=== PATIENT | male | born 1940 | race Hispanic/Latino ===

== ENCOUNTER → 2018-05-12 | Outpatient (CLI) | payer OTHER, MEDICARE ==
[~2018-05-12] MED LIST: ASPI-555 PO; GLIP1TAB5 PO; HONEY 1 APPL/ML TUBE TP ONE; LISI-613 PO; SIMV40TA59 PO; VIT500LI PO; [UNRECOGNIZED DRUG - OTHER] PO
[2018-05-12 13:05] VITALS: BP 144/68
== END | disposition home or self-care (01) ==
LOC: WHH 08:25
PROVIDERS: ATTEND Podiatrist Foot & Ankle Surgery
DX: E11.621 Type 2 diabetes mellitus with foot ulcer (principal); L97.421 Non-pressure chronic ulcer of left heel and midfoot limited to breakdown of skin; I10 Essential (primary) hypertension; E78.00 Pure hypercholesterolemia, unspecified; F03.90 Unspecified dementia, unspecified severity, without behavioral disturbance, psychotic disturbance, mood disturbance, and anxiety
CPT/HCPCS: 11042; A4450; A6209; G0463

== ENCOUNTER → 2018-05-26 | Outpatient (CLI) | payer OTHER, MEDICARE ==
[~2018-05-26] MED LIST changes: -HONEY 1 APPL/ML TUBE TP ONE
[2018-05-26 11:48] VITALS: BP 150/68
== END | disposition home or self-care (01) ==
LOC: WHH 09:30
PROVIDERS: ATTEND Podiatrist Foot & Ankle Surgery
DX: E11.621 Type 2 diabetes mellitus with foot ulcer (principal); L97.421 Non-pressure chronic ulcer of left heel and midfoot limited to breakdown of skin; I10 Essential (primary) hypertension; E78.00 Pure hypercholesterolemia, unspecified; F03.90 Unspecified dementia, unspecified severity, without behavioral disturbance, psychotic disturbance, mood disturbance, and anxiety
CPT/HCPCS: 11042; A4649

== ENCOUNTER → 2018-06-02 | Outpatient (CLI) | payer OTHER, MEDICARE ==
[2018-06-02 13:58] VITALS: BP 131/60
== END | disposition home or self-care (01) ==
LOC: WHH 09:00
PROVIDERS: ATTEND Podiatrist Foot & Ankle Surgery
DX: E11.621 Type 2 diabetes mellitus with foot ulcer (principal); L97.421 Non-pressure chronic ulcer of left heel and midfoot limited to breakdown of skin; I10 Essential (primary) hypertension; E78.00 Pure hypercholesterolemia, unspecified; F03.90 Unspecified dementia, unspecified severity, without behavioral disturbance, psychotic disturbance, mood disturbance, and anxiety
CPT/HCPCS: 11042; A4649

== ENCOUNTER → 2018-06-16 | Outpatient (CLI) | payer OTHER, MEDICARE ==
[2018-06-16 11:58] VITALS: BP 135/59
== END | disposition home or self-care (01) ==
LOC: WHH 09:15
PROVIDERS: ATTEND Podiatrist Foot & Ankle Surgery
DX: E11.621 Type 2 diabetes mellitus with foot ulcer (principal); L97.421 Non-pressure chronic ulcer of left heel and midfoot limited to breakdown of skin; I10 Essential (primary) hypertension; E78.00 Pure hypercholesterolemia, unspecified; F03.90 Unspecified dementia, unspecified severity, without behavioral disturbance, psychotic disturbance, mood disturbance, and anxiety
CPT/HCPCS: A4649; G0463

== ENCOUNTER → 2018-06-30 | Outpatient (CLI) | payer OTHER, MEDICARE ==
[2018-06-30 13:15] VITALS: BP 179/86
== END | disposition home or self-care (01) ==
LOC: WHH 09:25
PROVIDERS: ATTEND Podiatrist Foot & Ankle Surgery
DX: E11.621 Type 2 diabetes mellitus with foot ulcer (principal); L97.421 Non-pressure chronic ulcer of left heel and midfoot limited to breakdown of skin; I10 Essential (primary) hypertension; E78.00 Pure hypercholesterolemia, unspecified; F03.90 Unspecified dementia, unspecified severity, without behavioral disturbance, psychotic disturbance, mood disturbance, and anxiety; Z89.422 Acquired absence of other left toe(s)
CPT/HCPCS: A4649; G0463

== ENCOUNTER → 2018-07-21 | Outpatient (CLI) | payer OTHER, MEDICARE ==
[2018-07-21 13:15] VITALS: BP 113/58
== END | disposition home or self-care (01) ==
LOC: WHH 09:15
PROVIDERS: ATTEND Podiatrist Foot & Ankle Surgery
DX: E11.621 Type 2 diabetes mellitus with foot ulcer (principal); L97.421 Non-pressure chronic ulcer of left heel and midfoot limited to breakdown of skin; I10 Essential (primary) hypertension; E78.00 Pure hypercholesterolemia, unspecified; F03.90 Unspecified dementia, unspecified severity, without behavioral disturbance, psychotic disturbance, mood disturbance, and anxiety; Z89.422 Acquired absence of other left toe(s)
CPT/HCPCS: G0463

== ENCOUNTER 2018-07-28 09:00 | Outpatient (CLI) | payer OTHER, MEDICARE ==
[2018-07-28 13:51] VITALS: BP 148/70
== END 2018-07-28 15:05 | disposition home or self-care (01) ==
LOC: WHH 09:00
PROVIDERS: ATTEND Podiatrist Foot & Ankle Surgery
DX: E11.621 Type 2 diabetes mellitus with foot ulcer (principal); L97.428 Non-pressure chronic ulcer of left heel and midfoot with other specified severity; I10 Essential (primary) hypertension; E78.00 Pure hypercholesterolemia, unspecified; F03.90 Unspecified dementia, unspecified severity, without behavioral disturbance, psychotic disturbance, mood disturbance, and anxiety; Z89.422 Acquired absence of other left toe(s)
CPT/HCPCS: G0463

== ENCOUNTER 2018-10-15 20:48 | Inpatient (IN) | payer OTHER, MEDICARE ==
[~2018-10-15] VITALS: Ht 177.8 cm; Wt 90.2 kg
[2018-10-15 21:46] LABS: CREATINE KINASE, TOTAL 77 U/L (21-232); MYOGLOBIN 127 ng/mL (10-92); TROPONIN I < 0.04 ng/mL (0.00-0.06)
[2018-10-15 21:47] LABS: BASOPHILS % (AUTO) 0.4 % (0.0-5.0); HEMATOCRIT 31.4 % (42-54); LYMPHOCYTES % (AUTO) 4.6 % (21.0-51.0); MEAN CORPUSCULAR HEMOGLOBIN 29.5 pg (27.0-33.0); MEAN CORPUSCULAR HGB CONC 32.1 g/dL (32.0-36.0); MEAN CORPUSCULAR VOLUME 91.9 fL (79-99); MONOCYTES % (AUTO) 6.3 % (3.0-13.0); NEUTROPHILS % (AUTO) 88.7 % (40.0-77.0); PLATELET COUNT (AUTO) 284 K/uL (130-400); RED BLOOD CELL COUNT(AUTO) 3.42 MIL/uL (4.50-6.20); WHITE BLOOD COUNT (AUTO) 15.2 K/uL (4.8-10.8)
[2018-10-15 21:56] LABS: APPEARANCE,URINE Clear (CLEAR); BILIRUBIN,URINE Negative (NEGATIVE); COLOR,URINE Yellow (YELLOW); GLUCOSE, URINE (UA) Negative (NEGATIVE); KETONES,URINE Negative (NEGATIVE); LEUKOCYTE ESTERASE ,URINE Trace (NEGATIVE); NITRATE,URINE Negative (NEGATIVE); OCCULT BLOOD,URINE Negative (NEGATIVE); PROTEIN,URINE Negative (NEGATIVE); UROBILINOGEN,URINE 0.2 mg/dL (0.2-1.0)
[2018-10-15 22:01] LABS: ALBUMIN 2.2 g/dL (3.5-5.0); BILIRUBIN,TOTAL 0.4 mg/dL (0.2-1.0); POTASSIUM 5.9 mmol/L (3.5-5.1); TOTAL PROTEIN, SERUM 6.2 g/dL (6.0-8.3)
[2018-10-15 22:07] LABS: BACTERIA,URINE Few /HPF (None Seen); RBC,URINE 0-1 /HPF (0-1); SQUAMOUS EPITHELIAL CELL,UR 0-2 /HPF (0-2); WBC,URINE 0-1 /HPF (0-1)
[2018-10-15] MEDS ORDERED: ACETAMINOPHEN EXTRA STRENGTH 500 MG TABLET ONE (22:13)
[2018-10-15] MEDS ORDERED: SODIUM CHLORIDE 0.9% 1000ML 1,000 ML IV ONE ×2 (22:13→23:59)
[2018-10-15 22:27] LABS: INR 0.98 (0.85-1.15); PARTIAL THROMBOPLASTIN TIME 35.9 SEC (26.3-35.5); PROTHROMBIN TIME 10.3 SEC (9.6-11.6)
[2018-10-15] MEDS ORDERED: MAGNESIUM 2GM PREMIX 50ML 50 ML IV ONE (22:54)
[2018-10-15] MEDS ORDERED: CEFTRIAXONE SODIUM 1 GM ONE (22:55)
[2018-10-15] MEDS ORDERED: AZITHROMYCIN 500MG+NS 250ML 250 ML IV ONE (22:55)
[2018-10-15] MEDS ORDERED: METHYLPREDNISOLONE SOD SUCC 40MG/ML 1ML ONE (23:59)
[2018-10-16] MEDS: SODIUM CHLORIDE 0.9% 1000ML 1,000 ML IV SCH ×3 (02:00→20:45)
[2018-10-16] MEDS ORDERED: DEXTROSE 50%-WATER 50 ML DISP.SYRIN IV PRN (02:00)
[2018-10-16] MEDS ORDERED: ONDANSETRON HCL 4 MG/2 ML VIAL IVP PRN (02:00)
[2018-10-16] MEDS ORDERED: GLUCAGON 1MG KIT 1 MG ML IM PRN (02:00)
[2018-10-16] MEDS ORDERED: NOREPINEPHRINE BITARTRATE 1 MG/1 ML ML IV ONE (02:31)
[2018-10-16] MEDS: IPRATROPIUM/ALBUTEROL SULFATE 3 ML SOLUTION IH SCH ×4 (06:23→23:55)
[2018-10-16] MEDS ORDERED: NOREPINEPHRINE 4MG/NS 250ML 250 ML IV PRN (06:45)
[2018-10-16 06:51] LABS: BASOPHILS % (AUTO) 0.1 % (0.0-5.0); EOSINOPHILS % (AUTO) 0.1 % (0.0-8.0); HEMATOCRIT 31.4 % (42-54); LYMPHOCYTES % (AUTO) 3.9 % (21.0-51.0); MEAN CORPUSCULAR HEMOGLOBIN 29.9 pg (27.0-33.0); MEAN CORPUSCULAR HGB CONC 32.7 g/dL (32.0-36.0); MEAN CORPUSCULAR VOLUME 91.6 fL (79-99); MONOCYTES % (AUTO) 1.6 % (3.0-13.0); NEUTROPHILS % (AUTO) 94.3 % (40.0-77.0); PLATELET COUNT (AUTO) 262 K/uL (130-400); RED BLOOD CELL COUNT(AUTO) 3.43 MIL/uL (4.50-6.20); RED CELL DISTRIBUTION WIDTH 14.9 % (11.0-15.5); WHITE BLOOD COUNT (AUTO) 16.8 K/uL (4.8-10.8)
[2018-10-16 07:05] LABS: CREATININE 2.2 mg/dL (0.5-1.5); POTASSIUM 5.8 mmol/L (3.5-5.1)
[2018-10-16] MEDS: INSULIN R PO SS1 SQ SCH ×4 (07:30→22:36)
[2018-10-16] MEDS ORDERED: INSULIN HUMULIN R 100 UNIT/ML 3ML ONE ×3 (07:34→13:41)
[2018-10-16] MEDS: ENOXAPARIN SODIUM 30 MG/0.3 ML SQ SCH (09:00)
[2018-10-16] MEDS ORDERED: PANTOPRAZOLE 40 MG/VIAL IVP SCH (09:00)
[2018-10-16] MEDS ORDERED: ENOXAPARIN SODIUM 30 MG/0.3 ML SQ ONE (09:23)
[2018-10-16 10:08] LABS: TROPONIN I 0.25 ng/mL (0.00-0.06)
[2018-10-16] MEDS ORDERED: SODIUM CHLORIDE 0.9% 1000ML 1,000 ML IV ONE (10:46)
[2018-10-16] MEDS: METHYLPREDNISOLONE SOD SUCC 40MG/ML 1ML IVP SCH (12:00)
[2018-10-16] MEDS ORDERED: ONDA8TAB12 PO (13:03)
[2018-10-16] MEDS ORDERED: PANT40TA25 PO (13:03)
[2018-10-16 13:36] VITALS: BP 122/63
[2018-10-16] MEDS ORDERED: CALCIUM GLUCONATE 1 GM/10 ML VIAL IV ONE (13:40)
[2018-10-16] MEDS ORDERED: SODIUM BICARB 50MEQ 50ML VIAL ONE (13:40)
[2018-10-16] MEDS ORDERED: DEXTROSE 50%-WATER 50 ML DISP.SYRIN IV ONE (13:42)
[2018-10-16 14:15] VITALS: BP 137/75
[2018-10-16 16:00] VITALS: BP 111/60
[2018-10-16 19:25] VITALS: BP 129/73
[2018-10-16] MEDS: AZITHROMYCIN 500MG+NS 250ML 250 ML IV SCH (20:44)
[2018-10-16] MEDS: CEFTRIAXONE SODIUM 1 GM IVP SCH (22:15)
[2018-10-16 23:31] VITALS: BP 113/54
[2018-10-17] MEDS: METHYLPREDNISOLONE SOD SUCC 40MG/ML 1ML IVP SCH ×3 (00:33→23:36)
[2018-10-17 03:16] VITALS: BP 115/65
[2018-10-17 03:31] LABS: BASOPHILS % (AUTO) 0.1 % (0.0-5.0); HEMATOCRIT 27.3 % (42-54); LYMPHOCYTES % (AUTO) 1.9 % (21.0-51.0); MEAN CORPUSCULAR HEMOGLOBIN 29.6 pg (27.0-33.0); MEAN CORPUSCULAR HGB CONC 32.4 g/dL (32.0-36.0); MEAN CORPUSCULAR VOLUME 91.6 fL (79-99); PLATELET COUNT (AUTO) 263 K/uL (130-400); RED BLOOD CELL COUNT(AUTO) 2.98 MIL/uL (4.50-6.20); RED CELL DISTRIBUTION WIDTH 14.8 % (11.0-15.5); WHITE BLOOD COUNT (AUTO) 16.8 K/uL (4.8-10.8)
[2018-10-17 04:52] LABS: ALBUMIN 1.7 g/dL (3.5-5.0); BILIRUBIN,TOTAL 0.2 mg/dL (0.2-1.0); CREATININE 1.7 mg/dL (0.5-1.5); MAGNESIUM 1.7 mg/dL (1.80-2.40); POTASSIUM 4.7 mmol/L (3.5-5.1); THYROID STIMULATING HORMONE 0.22 uIU/mL (0.36-3.74); TOTAL PROTEIN, SERUM 5.2 g/dL (6.0-8.3); URIC ACID 9.1 mg/dL (2.6-7.2)
[2018-10-17] MEDS: INSULIN R PO SS1 SQ SCH ×4 (06:56→21:55)
[2018-10-17 07:00] VITALS: BP 132/70
[2018-10-17] MEDS: IPRATROPIUM/ALBUTEROL SULFATE 3 ML SOLUTION IH SCH ×4 (07:20→23:35)
[2018-10-17] MEDS: PANTOPRAZOLE SODIUM 40 MG TABLET.DR PO SCH (09:23)
[2018-10-17] MEDS: FOLIC ACID/VITAMIN B COMP W-C 1 MG CAPSULE PO SCH (09:23)
[2018-10-17] MEDS: ENOXAPARIN SODIUM 30 MG/0.3 ML SQ SCH (09:24)
[2018-10-17] MEDS: SODIUM CHLORIDE 0.9% 1000ML 1,000 ML IV SCH (09:24)
[2018-10-17 11:00] VITALS: BP 128/62
[2018-10-17 16:00] VITALS: BP 145/76
--- NOTE | 2018-10-17 17:12 | NUR ---
cm note met with patient and [facility] with 2 daughters doroteo and lauren flores, pt independent with ambulation and adls. no dme. no services at home. [facility] dc plan is back to same home setting at [place]. no dc needs. pt drives. Addendum: 10/17/18 at 1714 by SACHA GONZALEZ CM Amended: Links added.
[2018-10-17 19:10] VITALS: BP 127/60
[2018-10-17] MEDS: AZITHROMYCIN 500MG+NS 250ML 250 ML IV SCH (20:26)
[2018-10-17] MEDS: CEFTRIAXONE SODIUM 1 GM IVP SCH (21:41)
[2018-10-17] MEDS: ACETAMINOPHEN 325 MG TAB PO PRN (21:41)
[2018-10-17 23:00] VITALS: BP 139/69
--- NOTE | 2018-10-18 01:57 | NUR ---
Patient is alert and oriented. Lying in bed, comfortably. Patient receiving IVF. IV to L arm CDI, patent. Currently using 2L of 02 via NC. NO c/o of sob or chest pain. Patient ambulates to bathroom with FWW and standby assist from daughter. Patient states he has intermittent scrotal pain. Visible swelling to scrotum. Trace of swelling to BLE. IVF decreased per MD order. Pending sputum cx. Patient unable to give sample at this time. Will try again later.
[2018-10-18 03:17] VITALS: BP 118/61
[2018-10-18 03:47] LABS: HEMATOCRIT 26.9 % (42-54); MEAN CORPUSCULAR HEMOGLOBIN 29.9 pg (27.0-33.0); MEAN CORPUSCULAR HGB CONC 32.9 g/dL (32.0-36.0); MEAN CORPUSCULAR VOLUME 90.9 fL (79-99); NUCLEATED RED BLOOD CELLS 0.1 % (0.0-0.19); PLATELET COUNT (AUTO) 247 K/uL (130-400); RED BLOOD CELL COUNT(AUTO) 2.96 MIL/uL (4.50-6.20); RED CELL DISTRIBUTION WIDTH 15.3 % (11.0-15.5); WHITE BLOOD COUNT (AUTO) 14.8 K/uL (4.8-10.8)
[2018-10-18 04:02] LABS: CREATININE 1.4 mg/dL (0.5-1.5); POTASSIUM 4.8 mmol/L (3.5-5.1)
[2018-10-18] MEDS: INSULIN R PO SS1 SQ SCH ×4 (05:34→21:00)
[2018-10-18] MEDS: SODIUM CHLORIDE 0.9% 1000ML 1,000 ML IV SCH (05:52)
[2018-10-18] MEDS: IPRATROPIUM/ALBUTEROL SULFATE 3 ML SOLUTION IH SCH ×4 (06:10→23:23)
[2018-10-18 07:46] VITALS: BP 125/75
[2018-10-18] MEDS: PREDNISONE 20 MG TABLET PO SCH (08:55)
[2018-10-18] MEDS: PANTOPRAZOLE SODIUM 40 MG TABLET.DR PO SCH (08:55)
[2018-10-18] MEDS: FOLIC ACID/VITAMIN B COMP W-C 1 MG CAPSULE PO SCH (08:55)
[2018-10-18] MEDS: ENOXAPARIN SODIUM 30 MG/0.3 ML SQ SCH (08:56)
[2018-10-18 11:58] VITALS: BP 135/70
[2018-10-18] MEDS: ACETAMINOPHEN 325 MG TAB PO PRN (12:16)
[2018-10-18] MEDS: ASPIRIN 81 MG EC TAB PO SCH (13:31)
[2018-10-18] MEDS: METOPROLOL TARTRATE 25 MG TAB PO SCH ×2 (13:31→22:17)
[2018-10-18] MEDS ORDERED: FUROSEMIDE 10 MG/ML 2ML VIAL ONE (16:08)
[2018-10-18 16:55] VITALS: BP 129/68
[2018-10-18] MEDS: FUROSEMIDE 10 MG/ML 2ML VIAL IV SCH (17:00)
[2018-10-18 19:00] VITALS: BP 131/67
[2018-10-18] MEDS: LACTULOSE 20 GM/30 ML UDCUP PO PRN (19:39)
[2018-10-18] MEDS: AZITHROMYCIN 500MG+NS 250ML 250 ML IV SCH (22:16)
[2018-10-18] MEDS: CEFTRIAXONE SODIUM 1 GM IVP SCH (22:17)
[2018-10-18 23:00] VITALS: BP 121/68
[2018-10-19 03:00] VITALS: BP 117/65
[2018-10-19 04:44] LABS: HEMATOCRIT 31.4 % (42-54); MEAN CORPUSCULAR HGB CONC 32.9 g/dL (32.0-36.0); MEAN CORPUSCULAR VOLUME 91.3 fL (79-99); PLATELET COUNT (AUTO) 306 K/uL (130-400); RED BLOOD CELL COUNT(AUTO) 3.44 MIL/uL (4.50-6.20)
[2018-10-19 04:56] LABS: CREATININE 1.6 mg/dL (0.5-1.5); MAGNESIUM 1.5 mg/dL (1.80-2.40); POTASSIUM 4.8 mmol/L (3.5-5.1)
[2018-10-19] MEDS: IPRATROPIUM/ALBUTEROL SULFATE 3 ML SOLUTION IH SCH ×3 (06:11→18:11)
[2018-10-19] MEDS ORDERED: MAGNESIUM 2GM PREMIX 50ML 50 ML IV PRN (06:30)
[2018-10-19] MEDS: PANTOPRAZOLE SODIUM 40 MG TABLET.DR PO SCH (06:32)
[2018-10-19] MEDS: FUROSEMIDE 10 MG/ML 2ML VIAL IV SCH ×2 (06:32→17:32)
[2018-10-19] MEDS: INSULIN R PO SS1 SQ SCH ×3 (06:33→16:30)
[2018-10-19 07:52] VITALS: BP 110/60
[2018-10-19] MEDS: METOPROLOL TARTRATE 25 MG TAB PO SCH (09:18)
[2018-10-19] MEDS: ASPIRIN 81 MG EC TAB PO SCH (09:18)
[2018-10-19] MEDS: LACTULOSE 20 GM/30 ML UDCUP PO PRN (09:18)
[2018-10-19] MEDS: FOLIC ACID/VITAMIN B COMP W-C 1 MG CAPSULE PO SCH (09:18)
[2018-10-19] MEDS: PREDNISONE 20 MG TABLET PO SCH (09:18)
[2018-10-19] MEDS: ENOXAPARIN SODIUM 30 MG/0.3 ML SQ SCH (09:24)
--- NOTE | 2018-10-19 11:40 | NUR ---
ASSISTED TO RESTROOM WITH USE OF WALKER REQUESTED BY PT. INSTRUCTED ON EMERGENCY CALL LIGHT USE, VERBALIZED UNDERSTANDING. SPOUSE AT BEDSIDE.
[2018-10-19 11:54] VITALS: BP 98/50
--- NOTE | 2018-10-19 12:18 | NUR ---
DR. DE LA ROSA IN ROOM SPEAKING WITH PT. AND FEMALE VISITOR AT BEDSIDE.
[2018-10-19 16:32] VITALS: BP 112/60
--- NOTE | 2018-10-19 17:32 | NUR ---
PT. STATES JUST HAD LARGE BM IN RESTROOM BUT REQUESTING DULCOLAX SUPPOSITORY ORDERED BY MD TO BE ADMINISTERED. SUPPOSITORY ADMINISTERED REQUESTED BY PT.; PT.'S DAUGHTER PRESENT AT BEDSIDE WHEN SUPPOSITORY REQUESTED.
[2018-10-19] MEDS: ACETAMINOPHEN 325 MG TAB PO PRN (17:41)
[2018-10-19] MEDS ORDERED: BISACODYL 10 MG SUPP.RECT RC ONE (17:58)
--- NOTE | 2018-10-19 18:20 | NUR ---
HL REMOVED, CATHETER INTACT. DISCHARGE INSTRUCTIONS GIVEN TO PT. AND DAUGHTER AT BEDSIDE, VERBALIZED MUTUAL UNDERSTANDING AND QUESTIONS ANSWERED.
--- NOTE | 2018-10-19 18:32 | NUR ---
DISCHARGED HOME VIA W/C WITH BELONGINGS ACCOMPANIED BY Jose COE, PCP AND PT.'S DAUGHTER.
== END 2018-10-19 19:09 | disposition home or self-care (01) | DRG 871 ==
LOC: EDH 20:48 → EDHIP 23:23 → 2AH 10-16 03:15
PROVIDERS: ADMIT Internal Medicine; ATTEND Internal Medicine
DX: A41.9 Sepsis, unspecified organism (principal); J18.9 Pneumonia, unspecified organism; J96.01 Acute respiratory failure with hypoxia; R65.21 Severe sepsis with septic shock; N17.9 Acute kidney failure, unspecified; E87.1 Hypo-osmolality and hyponatremia; E11.21 Type 2 diabetes mellitus with diabetic nephropathy; D64.9 Anemia, unspecified; E11.22 Type 2 diabetes mellitus with diabetic chronic kidney disease; E78.5 Hyperlipidemia, unspecified; E83.42 Hypomagnesemia; E87.5 Hyperkalemia; I12.9 Hypertensive chronic kidney disease with stage 1 through stage 4 chronic kidney disease, or unspecified chronic kidney disease; I48.91 Unspecified atrial fibrillation; K59.00 Constipation, unspecified; N18.9 Chronic kidney disease, unspecified; Z96.649 Presence of unspecified artificial hip joint; Z89.422 Acquired absence of other left toe(s)
CPT/HCPCS: 36415; 70450; 71045; 71250; 76770; 80048; 80053; 81001; 82550; 82948; 83605; 83735; 83874; 83880; 84100; 84443; 84484; 84550; 85025; 85027; 85610; 85730; 87040; 87088; 87804; 93005; 94640; 94664; C9113; G0378; J0456; J0610; J0696; J1650; J1815; J1940; J2920; J3475; J3490; J7030; J7070

== ENCOUNTER → 2019-08-05 | Outpatient (CLI) | payer OTHER, MEDICARE ==
[~2019-08-05] MED LIST changes: +ACET1TAB25 PO; +AZIT500T4 PO; +FURO20TA4 PO; -GLIP1TAB5 PO; +IOHEXOL-350 50ML VIAL IV ONE; +IOHEXOL-350 75 ML VIAL IV ONE; -LISI-613 PO; +LISI10TA7 PO; +PRED20TA3 PO; -VIT500LI PO
== END | disposition home or self-care (01) ==
LOC: RAH 07:45
PROVIDERS: ATTEND Internal Medicine Cardiovascular Disease
DX: N28.1 Cyst of kidney, acquired (principal); K75.3 Granulomatous hepatitis, not elsewhere classified; N28.89 Other specified disorders of kidney and ureter; J90 Pleural effusion, not elsewhere classified; J98.11 Atelectasis; I70.203 Unspecified atherosclerosis of native arteries of extremities, bilateral legs; I70.0 Atherosclerosis of aorta; I70.8 Atherosclerosis of other arteries
CPT/HCPCS: 75635; Q9967 ×2

== ENCOUNTER 2020-03-27 09:09 | Inpatient (IN) | payer OTHER, MEDICARE ==
[~2020-03-27] VITALS: Ht 177.8 cm; Wt 64.2 kg
[~2020-03-27 09:09] MED LIST changes: -ASPI-555 PO; +ASPI-556 PO; -IOHEXOL-350 50ML VIAL IV ONE; -IOHEXOL-350 75 ML VIAL IV ONE
[2020-03-27 09:34] LABS: BASOPHILS % (AUTO) 0.6 % (0.0-5.0); EOSINOPHILS % (AUTO) 5.1 % (0.0-8.0); HEMATOCRIT 31.2 % (42-54); LYMPHOCYTES % (AUTO) 19.1 % (21.0-51.0); MEAN CORPUSCULAR HEMOGLOBIN 27.4 pg (27.0-33.0); MEAN CORPUSCULAR HGB CONC 30.4 g/dL (32.0-36.0); MEAN CORPUSCULAR VOLUME 89.9 fL (79-99); MONOCYTES % (AUTO) 4.6 % (3.0-13.0); NEUTROPHILS % (AUTO) 70.3 % (40.0-77.0); PLATELET COUNT (AUTO) 293 K/uL (130-400); RED BLOOD CELL COUNT(AUTO) 3.47 MIL/uL (4.50-6.20); RED CELL DISTRIBUTION WIDTH 14.9 % (11.0-15.5); WHITE BLOOD COUNT (AUTO) 6.7 K/uL (4.8-10.8)
[2020-03-27 09:47] LABS: POTASSIUM 4.8 mmol/L (3.5-5.1)
[2020-03-27 09:52] LABS: B-TYPE NATRIURETIC PEPTIDE 82 pg/mL (0-100); INR 0.92 (0.85-1.15); PARTIAL THROMBOPLASTIN TIME 29.5 SEC (26.3-35.5)
[2020-03-27 09:57] LABS: BILIRUBIN,DIRECT 0.1 mg/dL (0.0-0.3); BILIRUBIN,TOTAL 0.3 mg/dL (0.2-1.0); TOTAL PROTEIN, SERUM 8.8 g/dL (6.0-8.3)
[2020-03-27] MEDS ORDERED: FUROSEMIDE 10 MG/ML 4ML VIAL ONE (11:26)
[2020-03-27 12:20] LABS: APPEARANCE,URINE Clear (CLEAR); BILIRUBIN,URINE Negative (NEGATIVE); COLOR,URINE Yellow (YELLOW); GLUCOSE, URINE (UA) Negative (NEGATIVE); KETONES,URINE Negative (NEGATIVE); LEUKOCYTE ESTERASE ,URINE Negative (NEGATIVE); NITRATE,URINE Negative (NEGATIVE); OCCULT BLOOD,URINE Trace (NEGATIVE); PROTEIN,URINE Trace mg/dL (NEGATIVE); UROBILINOGEN,URINE 0.2 mg/dL (0.2-1.0)
[2020-03-27 12:27] LABS: BACTERIA,URINE Rare /HPF (None Seen); RBC,URINE 0-1 /HPF (0-1); SQUAMOUS EPITHELIAL CELL,UR Few /HPF (0-2)
[2020-03-27] MEDS ORDERED: ACETAMINOPHEN 325 MG TAB PO PRN ×2 (13:00)
[2020-03-27] MEDS ORDERED: SODIUM CHLORIDE 0.9% 1000ML 1,000 ML IV ONE (13:00)
[2020-03-27] MEDS ORDERED: ACETAMINOPHEN-CODEINE 300/30MG TAB PO PRN (13:00)
[2020-03-27] MEDS ORDERED: ONDANSETRON HCL 4 MG/2 ML VIAL IV PRN (13:00)
[2020-03-27] MEDS ORDERED: MORPHINE SULFATE 4 MG/1ML SYG IV PRN (13:00)
[2020-03-27 16:00] VITALS: BP 148/58
--- NOTE | 2020-03-27 16:00 | NUR ---
Received patient from ED via stretcher. Pt in stable condition, pt A+Ox3, head to toe assessment inplace. patient noted to have toe missing toes to left foot. Pt skin dry and intact no skin breakdown or rashes noted. Pt a good historian, pt v/s taken , pt weighted, pt denies any pain or discomfort. pt in bed resting comfortably no complaints offered. also spoke with daughter on the phone for update. will cont to monitor
[2020-03-27] MEDS ORDERED: TAMS-1 PO (16:47)
[2020-03-27] MEDS ORDERED: ASPI-1197 PO (16:47)
[2020-03-27] MEDS ORDERED: GABA-529 PO (16:47)
[2020-03-27] MEDS ORDERED: CILO100T PO (16:47)
[2020-03-27 20:14] VITALS: BP 141/68
[2020-03-27] MEDS: CILOSTAZOL 100 MG TAB PO SCH (20:29)
[2020-03-27] MEDS: INSULIN HUMULIN R 100 UNIT/ML 3ML SQ SCH (20:29)
[2020-03-27] MEDS: GABAPENTIN 100 MG CAPSULE PO SCH (20:29)
[2020-03-28] VITALS (9 sets, daily range): BP systolic 60–133; BP diastolic 33–81
[2020-03-28] MEDS: INSULIN HUMULIN R 100 UNIT/ML 3ML SQ SCH ×4 (03:13→21:00)
[2020-03-28 06:10] LABS: BASOPHILS % (AUTO) 0.4 % (0.0-5.0); EOSINOPHILS % (AUTO) 6.6 % (0.0-8.0); LYMPHOCYTES % (AUTO) 26.2 % (21.0-51.0); MEAN CORPUSCULAR HEMOGLOBIN 27.2 pg (27.0-33.0); MEAN CORPUSCULAR HGB CONC 30.9 g/dL (32.0-36.0); MONOCYTES % (AUTO) 7.5 % (3.0-13.0); NEUTROPHILS % (AUTO) 59.1 % (40.0-77.0); PLATELET COUNT (AUTO) 301 K/uL (130-400); RED BLOOD CELL COUNT(AUTO) 3.75 MIL/uL (4.50-6.20); RED CELL DISTRIBUTION WIDTH 14.6 % (11.0-15.5); WHITE BLOOD COUNT (AUTO) 5.3 K/uL (4.8-10.8)
[2020-03-28 06:24] LABS: CREATININE 1.8 mg/dL (0.5-1.5); MAGNESIUM 1.7 mg/dL (1.80-2.40); POTASSIUM 4.7 mmol/L (3.5-5.1)
[2020-03-28 06:36] LABS: HEMOGLOBIN A1C 6.1 % (4.0-6.0)
[2020-03-28] MEDS ORDERED: TAMSULOSIN HCL 0.4 MG CAP.ER.24H PO SCH (09:00)
[2020-03-28] MEDS: ENOXAPARIN SODIUM 30 MG/0.3 ML SQ SCH (10:59)
[2020-03-28] MEDS: ASPIRIN 81MG TAB.CHEW PO SCH (10:59)
[2020-03-28] MEDS: CILOSTAZOL 100 MG TAB PO SCH ×2 (10:59→21:59)
[2020-03-28] MEDS: GABAPENTIN 100 MG CAPSULE PO SCH ×3 (14:00→21:00)
[2020-03-28] MEDS ORDERED: SODIUM CHLORIDE 0.9% 500ML 500 ML IV ONE (14:39)
[2020-03-28] MEDS ORDERED: SODIUM CHLORIDE 0.9% 500ML 500 ML IV SCH (14:45)
--- NOTE | 2020-03-28 17:22 | NUR ---
CM NOTE/IA UNABLE TO SPEAK TO PATIENT IN ROOM, NEXT OF KIN CALLED, [place]. NO ANSWER, CM TO FOLLOW UP WITH IA LATER. Addendum: 03/28/20 at 1723 by SHIRA CASSIDY RN CM Amended: Links added.
[2020-03-28] MEDS ORDERED: MAGNESIUM 2GM PREMIX 50ML 50 ML IV ONE (20:00)
[2020-03-29 04:16] VITALS: BP 98/60
[2020-03-29 04:51] LABS: HEMATOCRIT 28.5 % (42-54); MEAN CORPUSCULAR HGB CONC 31.2 g/dL (32.0-36.0); MEAN CORPUSCULAR VOLUME 86.4 fL (79-99); RED BLOOD CELL COUNT(AUTO) 3.3 MIL/uL (4.50-6.20); RED CELL DISTRIBUTION WIDTH 14.4 % (11.0-15.5)
[2020-03-29 05:12] LABS: CREATININE 2.1 mg/dL (0.5-1.5); MAGNESIUM 2.1 mg/dL (1.80-2.40); POTASSIUM 4.1 mmol/L (3.5-5.1)
[2020-03-29] MEDS: INSULIN HUMULIN R 100 UNIT/ML 3ML SQ SCH ×4 (06:02→21:00)
--- NOTE | 2020-03-29 06:31 | NUR ---
pt has been resting in bed; vitals taken q4 and prescribed medications by IV administered; pt is NPO; pts 2100 Neurontin held due to BP = 98/50, pt was administered Pletal; pt also received x1 Morphine dose and appears to be resting comfortably. CHUCK Ahmadi Addendum: 03/29/20 at 0636 by Carlitos Romero RN RN PLEASE DISREGARD ABOVE NOTE; DOCUMENTATION ON INCORRECT PT Addendum: 03/29/20 at 0638 by Carlitos Romero RN RN CORRECT NOTE..........pt has been resting in bed throughout shift; vitals taken q4 and prescribed medications administered; pts 2100 Neurontin held due to BP = 98/50, pt was administered Pletal; pts BS = 114 and 98, no insulin coverage needed. CHUCK Ahmadi
--- NOTE | 2020-03-29 07:00 | NUR ---
pts orthostatic vitals retrieved; pts BP laying down = 136/67 and sitting = 75/73; pt was instructed to lay down in bed, feet were elevated and MONE hose to be applied at this time. Daiana RN
[2020-03-29] MEDS: GABAPENTIN 100 MG CAPSULE PO SCH ×3 (08:08→21:04)
[2020-03-29] MEDS: ASPIRIN 81MG TAB.CHEW PO SCH (08:08)
[2020-03-29] MEDS: ENOXAPARIN SODIUM 30 MG/0.3 ML SQ SCH (08:08)
[2020-03-29 08:42] VITALS: BP 121/64
[2020-03-29] MEDS: CILOSTAZOL 100 MG TAB PO SCH ×2 (09:00→21:04)
[2020-03-29 11:23] VITALS: BP 124/71
[2020-03-29 16:49] VITALS: BP 104/60
--- NOTE | 2020-03-29 17:23 | NUR ---
MOVED BY BED TO ROOM 401
--- NOTE | 2020-03-29 17:45 | NUR ---
CM NOTE/IA UNSUCCESSFUL CALLED DAUGHTER, [place], NEXT OF KIN. NO ANSWER. CM TO FOLLOW UP FOR IA INFORMATION. Addendum: 03/29/20 at 1745 by SHIRA CASSIDY RN CM Amended: Links added.
[2020-03-29 20:41] VITALS: BP 120/70
[2020-03-29 23:25] VITALS: BP 95/55
[2020-03-30 03:29] VITALS: BP 103/53
[2020-03-30 03:47] LABS: BASOPHILS % (AUTO) 0.6 % (0.0-5.0); EOSINOPHILS % (AUTO) 7.3 % (0.0-8.0); HEMATOCRIT 29.1 % (42-54); LYMPHOCYTES % (AUTO) 34.8 % (21.0-51.0); MEAN CORPUSCULAR HEMOGLOBIN 26.7 pg (27.0-33.0); MEAN CORPUSCULAR HGB CONC 30.9 g/dL (32.0-36.0); MEAN CORPUSCULAR VOLUME 86.4 fL (79-99); MONOCYTES % (AUTO) 8.7 % (3.0-13.0); NEUTROPHILS % (AUTO) 48.4 % (40.0-77.0); PLATELET COUNT (AUTO) 269 K/uL (130-400); RED BLOOD CELL COUNT(AUTO) 3.37 MIL/uL (4.50-6.20); RED CELL DISTRIBUTION WIDTH 14.6 % (11.0-15.5); WHITE BLOOD COUNT (AUTO) 6.6 K/uL (4.8-10.8)
[2020-03-30 04:09] LABS: ALBUMIN 2.6 g/dL (3.5-5.0); BILIRUBIN,TOTAL 0.2 mg/dL (0.2-1.0); MAGNESIUM 2.3 mg/dL (1.80-2.40); PHOSPHORUS 3.9 mg/dL (2.5-4.9); POTASSIUM 4.4 mmol/L (3.5-5.1); TOTAL PROTEIN, SERUM 7.8 g/dL (6.0-8.3)
[2020-03-30] MEDS: INSULIN HUMULIN R 100 UNIT/ML 3ML SQ SCH ×4 (04:46→19:47)
[2020-03-30] MEDS: ASPIRIN 81MG TAB.CHEW PO SCH (08:21)
[2020-03-30] MEDS: ENOXAPARIN SODIUM 30 MG/0.3 ML SQ SCH (08:21)
[2020-03-30] MEDS: CILOSTAZOL 100 MG TAB PO SCH ×2 (08:21→19:46)
--- NOTE | 2020-03-30 08:25 | NUR ---
note received call from daughter eli orta and states pt resides at home with daughter Anya buenrostro and Alicia primary caregivers, pt ambulataes with walker, and daugthers assist as neede with adls. no provider services, no , [facility] plan is for pt to return back to same home setting at dc . can call Anya Buenrostro for any further dc needs. [phone]. Addendum: 03/30/20 at 0903 by SACHA GONZALEZ CM Amended: Links added.
[2020-03-30 08:30] VITALS: BP 113/66
[2020-03-30] MEDS: GABAPENTIN 100 MG CAPSULE PO SCH ×3 (08:41→19:46)
[2020-03-30 12:55] VITALS: BP 98/67
[2020-03-30 16:30] VITALS: BP 130/75
[2020-03-30 20:32] VITALS: BP 100/56
[2020-03-30 23:59] VITALS: BP 100/51
[2020-03-31 04:00] VITALS: BP 112/64
[2020-03-31] MEDS: INSULIN HUMULIN R 100 UNIT/ML 3ML SQ SCH ×4 (06:10→21:00)
[2020-03-31 06:33] LABS: HEMATOCRIT 32.3 % (42-54); MEAN CORPUSCULAR HEMOGLOBIN 26.9 pg (27.0-33.0); MEAN CORPUSCULAR HGB CONC 30.7 g/dL (32.0-36.0); MEAN CORPUSCULAR VOLUME 87.8 fL (79-99); RED BLOOD CELL COUNT(AUTO) 3.68 MIL/uL (4.50-6.20); RED CELL DISTRIBUTION WIDTH 14.6 % (11.0-15.5); WHITE BLOOD COUNT (AUTO) 5.8 K/uL (4.8-10.8)
[2020-03-31 06:58] LABS: CREATININE 1.9 mg/dL (0.5-1.5); POTASSIUM 4.7 mmol/L (3.5-5.1)
[2020-03-31 08:09] VITALS: BP 100/58
[2020-03-31] MEDS: ASPIRIN 81MG TAB.CHEW PO SCH (09:05)
[2020-03-31] MEDS: ENOXAPARIN SODIUM 30 MG/0.3 ML SQ SCH (09:06)
[2020-03-31] MEDS: CILOSTAZOL 100 MG TAB PO SCH ×2 (09:06→21:12)
[2020-03-31] MEDS: GABAPENTIN 100 MG CAPSULE PO SCH ×3 (09:06→21:11)
--- NOTE | 2020-03-31 11:30 | NUR ---
After speaking with Nuclear medicine, keeping patient npo & discussing with daughter for stress test ordered; patient refuses the procedure @ this time. NAD noted, [facility].
[2020-03-31 11:54] VITALS: BP 94/49
[2020-03-31] MEDS ORDERED: REGADENOSON 0.4 MG/5 ML PF SYG IVP SCH (13:45)
[2020-03-31 15:24] VITALS: BP 110/62
--- NOTE | 2020-03-31 17:35 | NUR ---
Transfer patient Report given to CHUCK Fuentes; will move patient from rm 401 to 425.
[2020-03-31 21:26] VITALS: BP 119/62
[2020-04-01 00:04] VITALS: BP 105/60
[2020-04-01 04:18] VITALS: BP 94/56
[2020-04-01] MEDS: INSULIN HUMULIN R 100 UNIT/ML 3ML SQ SCH ×4 (05:29→21:00)
[2020-04-01] MEDS: ASPIRIN 81MG TAB.CHEW PO SCH (07:34)
[2020-04-01] MEDS: CILOSTAZOL 100 MG TAB PO SCH ×2 (07:34→21:11)
[2020-04-01] MEDS: GABAPENTIN 100 MG CAPSULE PO SCH ×3 (07:34→21:11)
[2020-04-01] MEDS: ENOXAPARIN SODIUM 30 MG/0.3 ML SQ SCH (07:35)
[2020-04-01 08:00] VITALS: BP 136/71
--- NOTE | 2020-04-01 08:00 | NUR ---
ASSESSMENT PT IS AAOX3 DENIES CP DENIES SOB DENIES NV. AM MEDS GIVEN. SITTING UPRIGHT IN BED, CALL LIGHT WITHIN REACH.
--- NOTE | 2020-04-01 10:30 | NUR ---
DR Jennifer MORROW ROUNDED SAW PATIENT ORDERS RECEIVED
[2020-04-01 12:00] VITALS: BP 106/56
[2020-04-01 15:52] VITALS: BP 116/57
[2020-04-01 20:58] VITALS: BP 115/54
--- NOTE | 2020-04-01 23:00 | NUR ---
SPUTUM AND UA COLLECTED. SENT TO LAB Addendum: 04/01/20 at 2312 by LAXMI CHAVIRA RN RN TESFAYE GARCIA. #[id number]
--- NOTE | 2020-04-01 23:05 | NUR ---
PT STABLE. ABLE TO TAKE MEDICATIONS. NO DISTRESS NOTED. WILL BE NPO AT MIDNIGHT. GOING FOR STRESS TEST. GETTING BED BATH AT THIS TIME.
[2020-04-02 00:21] VITALS: BP 127/70
[2020-04-02 04:23] VITALS: BP 107/60
[2020-04-02] MEDS: INSULIN HUMULIN R 100 UNIT/ML 3ML SQ SCH ×4 (05:12→20:33)
[2020-04-02 05:56] LABS: BASOPHILS % (AUTO) 0.5 % (0.0-5.0); HEMATOCRIT 31.3 % (42-54); LYMPHOCYTES % (AUTO) 34.8 % (21.0-51.0); MEAN CORPUSCULAR HEMOGLOBIN 27.2 pg (27.0-33.0); MEAN CORPUSCULAR HGB CONC 30.7 g/dL (32.0-36.0); MEAN CORPUSCULAR VOLUME 88.7 fL (79-99); MONOCYTES % (AUTO) 8.5 % (3.0-13.0); PLATELET COUNT (AUTO) 275 K/uL (130-400); RED BLOOD CELL COUNT(AUTO) 3.53 MIL/uL (4.50-6.20); RED CELL DISTRIBUTION WIDTH 14.6 % (11.0-15.5)
[2020-04-02 06:25] LABS: POTASSIUM 4.7 mmol/L (3.5-5.1)
[2020-04-02] MEDS: ASPIRIN 81MG TAB.CHEW PO SCH (07:45)
[2020-04-02 07:59] VITALS: BP 113/62
[2020-04-02] MEDS: GABAPENTIN 100 MG CAPSULE PO SCH ×3 (08:10→20:25)
[2020-04-02] MEDS: CILOSTAZOL 100 MG TAB PO SCH ×2 (08:10→20:25)
[2020-04-02] MEDS: ENOXAPARIN SODIUM 30 MG/0.3 ML SQ SCH (08:11)
[2020-04-02 11:00] VITALS: BP 123/60
[2020-04-02] MEDS: REGADENOSON 0.4 MG/5 ML PF SYG IVP SCH ×2 (12:45→15:53)
--- NOTE | 2020-04-02 13:36 | NUR ---
TO NM VIA W/C, ACCOMPANIED BY DAI, MATERIAL EXPEDITER. NO C/O AT THIS TIME.
--- NOTE | 2020-04-02 17:02 | NUR ---
RETURNED TO ROOM VIA W/C. DENIES ANY C/O AT THIS TIME. DIET REORDERED AND DINNER TRAY REQUESTED.
--- NOTE | 2020-04-02 18:43 | NUR ---
TRANSFERRED TO ROOM 303 VIA W/C WITH BELONGINGS ACCOMPANIED BY THIS NURSE. NOTIFIED PT.'S DAUGHTER, [place], VIA TELEPHONE RE:TRANSFER, VERBALIZED UNDERSTANDING.
--- NOTE | 2020-04-02 18:45 | NUR ---
TRANSFER FROM 4TH PATIENT RECEIVED FROM 4TH FLOOR VIA WHEELCHAIR IN STABLE CONDITION. HE HAS BEEN ORIENTED TO ROOM AND USE OF CALL LIGHT. WILL CONTINUE TO MONITOR.
[2020-04-02 19:53] VITALS: BP 132/80
[2020-04-03] VITALS: BP 138/71
[2020-04-03 03:57] VITALS: BP 128/61
[2020-04-03 03:59] LABS: BASOPHILS % (AUTO) 0.5 % (0.0-5.0); EOSINOPHILS % (AUTO) 4.8 % (0.0-8.0); HEMATOCRIT 30.4 % (42-54); LYMPHOCYTES % (AUTO) 36.7 % (21.0-51.0); MEAN CORPUSCULAR HEMOGLOBIN 27.4 pg (27.0-33.0); MEAN CORPUSCULAR HGB CONC 31.3 g/dL (32.0-36.0); MEAN CORPUSCULAR VOLUME 87.6 fL (79-99); MONOCYTES % (AUTO) 8.1 % (3.0-13.0); NEUTROPHILS % (AUTO) 49.7 % (40.0-77.0); PLATELET COUNT (AUTO) 300 K/uL (130-400); RED BLOOD CELL COUNT(AUTO) 3.47 MIL/uL (4.50-6.20); RED CELL DISTRIBUTION WIDTH 14.6 % (11.0-15.5); WHITE BLOOD COUNT (AUTO) 5.7 K/uL (4.8-10.8)
[2020-04-03 04:12] LABS: CREATININE 2.1 mg/dL (0.5-1.5); POTASSIUM 5.2 mmol/L (3.5-5.1)
[2020-04-03] MEDS: INSULIN HUMULIN R 100 UNIT/ML 3ML SQ SCH ×3 (05:38→16:30)
[2020-04-03] MEDS: ASPIRIN 81MG TAB.CHEW PO SCH (07:55)
[2020-04-03] MEDS: CILOSTAZOL 100 MG TAB PO SCH (07:55)
[2020-04-03] MEDS: GABAPENTIN 100 MG CAPSULE PO SCH ×2 (07:55→14:23)
[2020-04-03] MEDS: ENOXAPARIN SODIUM 30 MG/0.3 ML SQ SCH (07:56)
--- NOTE | 2020-04-03 08:00 | NUR ---
PT AAO X 3 REVIEW PLAN OF CARE. DENIES ANY . DISCOMFORT. CALL LIGHT IN REACH. .
[2020-04-03 08:11] VITALS: BP 108/64
[2020-04-03 11:05] VITALS: BP 132/65
[2020-04-03 16:23] VITALS: BP 114/64
--- NOTE | 2020-04-03 18:50 | NUR ---
DISCHARGE HOME, REPORTSUMALICIA WAS REVIEW , WITH IS OLDEST DAUGHTER [place]O . REGARDING PENDING ARRANGEMENT . WITH [facility] ,FOR HOME HEALTH. WITH . DR. FAMILIA CLEANING . IN AM .ANDALSO REVIEW . PT TO ALSO CALLED IN AM TO SET UP HIS APPT .WITH DR. MORROW , WITH CARDIOLGIST . IN 2 WEEKS. SL WAS DC TO HIS LAC, NOTED NO HEMATOMA OR REDNESS . DISCHARGE HOME OFFER NOC/O OF DIZZNESS .
== END 2020-04-03 18:53 | disposition home health service (06) | DRG 314 ==
LOC: EDH 09:09 → EDHIP 12:47 → OBSVTOIN 12:47 → UNDOADMOB 12:47 → INTOOBSV 12:47 → EDHIP 16:05 → 4DH 16:05 → 4AH 03-29 16:39 → INTOOBSV 03-29 17:14 → UNDOADMOB 03-29 17:14 → 4DH 03-29 17:14 → EDHIP 03-29 17:14 → OBSVTOIN 03-29 17:14 → 4AH 03-29 17:14 → 4DH 03-31 18:03 → 3AH 04-02 18:52
PROVIDERS: ADMIT Internal Medicine Critical Care Medicine; ATTEND Internal Medicine Critical Care Medicine
DX: I95.9 Hypotension, unspecified (principal); J96.01 Acute respiratory failure with hypoxia; N17.9 Acute kidney failure, unspecified; I13.0 Hypertensive heart and chronic kidney disease with heart failure and stage 1 through stage 4 chronic kidney disease, or unspecified chronic kidney disease; E11.51 Type 2 diabetes mellitus with diabetic peripheral angiopathy without gangrene; E78.5 Hyperlipidemia, unspecified; Z20.828 Contact with and (suspected) exposure to other viral communicable diseases; Z90.5 Acquired absence of kidney; Z85.528 Personal history of other malignant neoplasm of kidney; E86.0 Dehydration; E11.22 Type 2 diabetes mellitus with diabetic chronic kidney disease; I50.9 Heart failure, unspecified; N18.3 Chronic kidney disease, stage 3 (moderate); S09.90XA Unspecified injury of head, initial encounter; W18.30XA Fall on same level, unspecified, initial encounter; Y93.89 Activity, other specified; Y92.89 Other specified places as the place of occurrence of the external cause; Y99.8 Other external cause status; Z79.02 Long term (current) use of antithrombotics/antiplatelets; Z79.82 Long term (current) use of aspirin; Z79.899 Other long term (current) drug therapy; Z87.891 Personal history of nicotine dependence; Z89.422 Acquired absence of other left toe(s)
CPT/HCPCS: 36415; 70450; 71045; 78452; 80048; 80053; 80076; 81001; 82550; 82948; 83036; 83735; 83880; 84100; 84484; 85025; 85027; 85610; 85730; 87426; 93005; 93017; 93306; 93880; 93970; 96374; 97039; A9500; G0378; J1650; J1940; J2785; J3475; J7030; J7040; U0003